=== PATIENT | female | born 1985 | race Caucasian/White ===

== ENCOUNTER 2017-07-21 06:00 | Inpatient (IN) ==
[2017-07-21] MEDS ORDERED: D5LR 1,000 ML IV PRN (06:07)
[2017-07-21] MEDS ORDERED: LIDOCAINE 1% (10mg/ml) 2mL INJ PF SDV ID PRN (06:07)
[2017-07-21] MEDS ORDERED: MAG-AL + SIM ORAL LIQUID 30ml PO PRN ×2 (06:07→14:04)
[2017-07-21] MEDS ORDERED: CARBOPROST 250 MCG/ML INJECTION IM PRN (06:07)
[2017-07-21] MEDS ORDERED: METHYLERGONOVINE 0.2 MG/ML INJECTION IM PRN (06:07)
[2017-07-21] MEDS ORDERED: LR 1,000 ML IV PRN (06:07)
[2017-07-21] MEDS ORDERED: CALCIUM CARBONATE Chewable 500mg TABLET PO PRN ×2 (06:07→14:04)
[2017-07-21] MEDS ORDERED: ACETAMINOPHEN 500 MG TABLET PO PRN ×2 (06:07→14:04)
[2017-07-21 06:54] VITALS: BMI 52.3
[2017-07-21] MEDS ORDERED: OXYTOCIN DRIP 30 UNIT/500 ML ML IV PRN (07:00)
[2017-07-21] MEDS ORDERED: AMPICILLIN 2 GM in NS 100 ML IV ONE (07:00)
--- NOTE | 2017-07-21 10:03 | Progress Note ---
DATE 07/21/2017 Ms. Haile is here today for induction of labor for suspected microsomia and history of HSV II outbreak during the . She is comfortable with early induction. Pitocin has been started. I just performed a sterile speculum exam and found no evidence of any outbreak and no lesions. She reports not having felt anything for many weeks and has been taking her Acyclovir. heart tones are reactive and reassuring. We will proceed with induction. PHI
[2017-07-21] MEDS ORDERED: AMPICILLIN 1 GM in NS 50 ML IV SCH (11:00)
[2017-07-21] MEDS ORDERED: HYDROCODONE/APAP 5mg/325mg TABLET PO PRN (14:04)
[2017-07-21] MEDS ORDERED: HYDROCORTISONE 2.5% CREAM 30gm RECTALLY PRN (14:04)
[2017-07-21] MEDS ORDERED: DiphenhydrAMINE 25 MG CAPSULE PO PRN (14:04)
[2017-07-21] MEDS: HYDROCODONE/APAP 5mg/325mg TABLET PO PRN ×2 (14:15→21:16)
[2017-07-21] MEDS: IBUPROFEN 800 MG TABLET PO SCH ×2 (14:16→22:08)
--- NOTE | 2017-07-21 16:08 | Labor and Delivery Note ---
DATE 07/21/2017 Ms. Haile progressed very well in first stage of labor. She began to push with excellent effort at complete and +2 presentation. She pushed for a few contractions, delivering the head in the OA presentation. There were signs of shoulder dystocia, so we had her continue to push. She delivered the anterior shoulder after another a moment and the posterior shoulder immediately after that. Then the rest of the baby intact. Baby was then bulb suctioned, placed on mother's abdomen. After about two and a half minutes, the cord was doubly clamped. It was cut by the baby's father, Tab. This is a liveborn male with Apgars of 8/9. He weighed 8 pounds 11 ounces. After a few minutes, the placenta delivered spontaneously, intact. It had a normal configuration and a normal-appearing three-vessel cord. Perineum was intact. Total blood loss was approximately 300 mL. At the time of this dictation, mother and baby are doing well. PHI
--- NOTE | 2017-07-22 08:28 | OB/GYN Progress Note ---
OB-PP Progress Note - General PPD1, PPD2 - Subjective Date: 07/22/17 Lochia: Moderate Pain: controlled Voiding: voiding Nausea or Vomiting Present: No - Objective Vital Signs: Last Vital Signs Temp 97.5 F 07/22/17 00:18 Pulse 55 L 07/22/17 00:18 Resp 18 07/22/17 00:18 BP 142/69 H 07/22/17 00:18 Pulse Ox 98 07/21/17 06:54 Urine Output: good General: alert and oriented Abdomen: fundus firm Extremities: non-tender Edema: none - Assessment Assessment: , GBS positive - Plan Plan: routine care
[2017-07-22] MEDS: DOCUSATE CALCIUM 240 MG CAPSULE PO SCH (09:30)
[2017-07-22] MEDS: IBUPROFEN 800 MG TABLET PO SCH ×3 (09:30→17:26)
[2017-07-22] MEDS: PRENATAL VITAMIN TABLET PO SCH (09:30)
[2017-07-22] MEDS: HYDROCODONE/APAP 5mg/325mg TABLET PO PRN ×2 (09:30→23:59)
[2017-07-23] MEDS: PRENATAL VITAMIN TABLET PO SCH (06:51)
[2017-07-23] MEDS: DOCUSATE CALCIUM 240 MG CAPSULE PO SCH (06:51)
[2017-07-23] MEDS: IBUPROFEN 800 MG TABLET PO SCH (06:51)
[2017-07-23 08:31] VITALS: BP 121/65; PULSE 59; RESP 18; TEMP 98.1; O2SAT 97
== END 2017-07-23 09:50 | disposition home or self-care (01) | DRG 774 ==
LOC: MC 06:02
PROVIDERS: ADMIT Obstetrics & Gynecology; ATTEND Obstetrics & Gynecology

== ENCOUNTER → 2017-07-28 18:40 | Observation (INO) ==
[2017-07-28 16:57] VITALS: BMI 52.4
[2017-07-28 18:01] VITALS: BP 146/89; PULSE 55; RESP 16; TEMP 99.2; O2SAT 98
--- NOTE | 2017-07-28 18:04 | Progress Note ---
OB PP Progress Note Free Text - Date Date: 07/28/17 - Progress Note Progress Note: Pt reports no change in sxs. Mild, persistent NICHOLS and neck ache, feels she can't take a deep breath. States her bleeding isn't heavy. Pad lasts several hours. BP 153/72 on Labetalol. Hgb 8.9--was over 10 3 days ago. Reviewed findings, neg chest CT. I suspect her sxs are related to the anemia as all other findings have been negative. Cont Labetalol for mild preeclampsia, , start OTC iron BID. Follow up in office in 2 weeks but sooner if any worsening or new sxs. Q&A
[~2017-07-28 18:40] MED LIST: ACETAMINOPHEN 500 MG TABLET PO PRN
== END | disposition home or self-care (01) ==
LOC: MC
PROVIDERS: ADMIT Obstetrics & Gynecology; ATTEND Obstetrics & Gynecology